=== PATIENT | male | born 1975 | race Caucasian/White ===

== ENCOUNTER 2020-02-17 14:10 | Emergency (ER) | payer SELFPAY ==
[~2020-02-17] VITALS: Ht 167.6 cm; Wt 63.5 kg
--- NOTE | 2020-02-17 14:39 | NUR ---
[email or web address], medical screening exam in progress
[2020-02-17 14:56] LABS: *BILIRUBIN,URIN NEGATIVE (NEGATIVE); *BLOOD, URINE 2+ (NEGATIVE); *CLARITY,URINE CLEAR (CLEAR); *COLOR,URINE YELLOW (YELLOW); *KETONES,URINE NEGATIVE (NEGATIVE); *UROBILINOGEN,URINE 0.2 E.U./dl (NORMAL); LEUKOCYTE ESTERASE ,URINE TRACE (NEGATIVE); NITRITE, URINE NEGATIVE (NEGATIVE); UGLUCOSE NEGATIVE (NEGATIVE)
[2020-02-17 15:04] LABS: BASOPHILS # (AUTO) 0.1 K/uL (0.0-8.0); BASOPHILS % (AUTO) 0.4 % (0.0-2.0); EOSINOPHILS % (AUTO) 0.2 % (0.0-7.0); HEMOGLOBIN 14.4 g/dL (12.5-16.3); LYMPHOCYTES # (AUTO) 2.1 K/uL (20.0-40.0); LYMPHOCYTES % (AUTO) 12.4 % (20.5-51.5); MEAN CORPUSCULAR HGB CONC 34 g/dL (32.5-36.3); MEAN CORPUSCULAR VOLUME 90.7 fL (73.0-96.2); MONOCYTES # (AUTO) 0.6 K/uL (2.0-10.0); MONOCYTES % (AUTO) 3.7 % (0.0-11.0); NEUTROPHILS # (AUTO) 14.2 K/uL (1.8-8.9); NEUTROPHILS % (AUTO) 83.3 % (38.5-71.5); PLATELET COUNT (AUTO) 302 K/uL (152-348); RED BLOOD CELL COUNT(AUTO) 4.63 MIL/uL (4.06-5.63)
--- NOTE | 2020-02-17 15:15 | NUR ---
Patient is back from CT scan, pending results & disposition
[2020-02-17 15:18] LABS: CREATININE 1.5 mg/dL (0.6-1.3); POTASSIUM 4.4 mmol/L (3.5-5.1)
[2020-02-17 15:24] LABS: BILIRUBIN,DIRECT 0.1 mg/dL (0.0-0.2); BILIRUBIN,TOTAL 0.6 mg/dL (0.2-1.0); TOTAL PROTEIN, SERUM 7.3 g/dL (6.4-8.2)
--- NOTE | 2020-02-17 15:44 | NUR ---
Patient is walking and moving about in the room. "I feel better walking than lying down or sitting down." per patient's verbalization.
--- NOTE | 2020-02-17 15:58 | NUR ---
Patient refused [email or web address]@this time, notified.
[2020-02-17] MEDS: HYDROCODONE/APAP 5-325MG TABLET PO ONE ×2 (16:04→17:38)
--- NOTE | 2020-02-17 16:22 | NUR ---
Patient is waiting for urine microscopic exam results@this time. Urine strainer was provided for home use with instructions given.
[2020-02-17] MEDS ORDERED: HYDROCODONE/APAP 5-325MG TABLET ONE (17:39)
--- NOTE | 2020-02-17 17:54 | NUR ---
Patient said that he will wait for the results (urine microscopic) despite the unknown turn-around time for the results, MD is aware.
[2020-02-17 17:56] LABS: BACTERIA,URINE FEW /HPF (NONE SEEN); SQUAMOUS EPITHELIAL CELL,UR FEW /HPF (NONE SEEN); WBC,URINE 0-3 /HPF (0-3)
--- NOTE | 2020-02-17 17:56 | NUR ---
Patient ate the hospital-provided whole sandwich with a bottle of cranberry juice, +good appetite. Patient also took the Bryson pill after eating.
--- NOTE | 2020-02-17 18:09 | NUR ---
Patient discharged to home in stable condition & brisk steady gait. Written and verbal after care instructions given. Patient verbalizes understanding of instructions. Stressed follow up with primary doctor & urologist or return to ER for worsening s/s.
== END 2020-02-17 18:11 | disposition home or self-care (01) ==
LOC: ER 14:10
DX: N13.2 Hydronephrosis with renal and ureteral calculous obstruction (principal)
CPT/HCPCS: 36415; 83690; 85025; A4663